=== PATIENT | female | born 1940 | race Caucasian/White ===

== ENCOUNTER 2025-06-19 09:34 | Outpatient (REF) | payer MEDICARE, BC, SELFPAY | END 2025-06-19 09:35 | disposition home or self-care (01) | LOC: HO.HPHYSR 09:34 | PROVIDERS: Visit Provider Physical Medicine & Rehabilitation | DX: M46.1 Sacroiliitis, not elsewhere classified (principal); M53.3 Sacrococcygeal disorders, not elsewhere classified | CPT/HCPCS: 27096; J2003; J3301; Q9967 ==

== ENCOUNTER 2025-06-19 09:34 | Outpatient (AMB) | payer MEDICARE, BC, SELFPAY ==
[2025-06-19 10:00] VITALS: BP 175/92; PULSE 72; TEMP 36.4; BMI 33.5
--- NOTE | 2025-06-19 10:00 | A.PHYSOV ---
Vital Signs 06/19/25 10:00 Height 4 ft 8.5 in Weight 152 lb BMI 33.5 BP 175/92 H Pulse 72 Temp 97.5 F Intake Visit Reasons: Right Sacroiliac Joint Injection Intake Note: Patient is a 84 year old female in office today for a right sacroiliac joint injection. Allergies tesslon pearls Allergy (Unknown, Uncoded 06/19/25 09:56) Unknown PFSH Medical History (Updated 06/19/25 @ 10:16 by Noel Diamond DO) Sacroiliac inflammation Sacroiliac dysfunction Surgical History (Updated 06/19/25 @ 10:00 by Leandra Louis MA) H/O hand surgery H/O shoulder surgery History of hip replacement History of knee replacement H/O: hysterectomy Social History (Updated 06/19/25 @ 09:58 by Leandra Louis MA) Household Members: None Alcohol intake: current Patient Tobacco Use Status: Former Tobacco user Use of substances other than those prescribed or required for medical reasons: No Current occupational status: retired Physical Exam Vital Signs: Last Vital Signs Temp 97.5 F 06/19/25 10:00 Pulse 72 06/19/25 10:00 BP 175/92 H 06/19/25 10:00 BMI result Body Mass Index 33.5 Office Procedures AMB Sacroiliac Joint Injection AMB Sacroiliac Joint Injection Procedure Details: Procedure performed: Right sacroiliac joint injection Preop diagnosis: SI joint mediated pain, sacroiliitis Postop diagnosis: The same Anesthesia: Local After informed consent was obtained patient was brought into the procedure room and placed in prone position on the procedure table. Skin over lumbar sacral area was prepped and draped in the usual sterile manner. The inferior portion of the right sacroiliac joint was visualized utilizing fluoroscopy. 3.5 in 22 gauge spinal needle was introduced percutaneously and advanced into the joint. Needle placement was verified utilizing 0.5 cc of Omnipaque contrast solution. 2.5 cc of therapeutic solution containing 40 mg of triamcinolone and 2% lidocaine was injected after negative aspiration for blood. The C-arm was obliqued about 30? in the contralateral direction an area just medial the proximal portion of the sacroiliac joint was visualized. 3.5 in 22 gauge spinal needle was introduced percutaneously and advanced to enter the area. Once in place, needle placement was identified utilizing 1 cc of Omnipaque contrast solution. Total volume of 2.5 cc containing 40 mg of triamcinolone and 2% lidocaine was injected to block the lateral branches at the sacroiliac ligament. Radiation exposure was documented in the chart. Sacroiliac Joint Injections 36171 - use with FL Gd order: Right All charges added?: Procedure code (CPT) selection complete Office Meds Kenalog 40 mg/mL suspension for injection Performing Provider: Noel Diamond DO Performing Location: [facility] Administered by: Noel Diamond DO on 06/19/25 10:17 Dose Route Admin Location Dispensed Lot Number Expiration Date [facility] Balance Wheel Hand Filer 80 mg intra-articular 2 mL [id number] [employer] Total Dispensed Waste 2 mL 0 % lidocaine (PF) 20 mg/mL (2 %) injection solution Performing Provider: Noel Diamond DO Performing Location: [facility] Administered by: Noel Diamond DO on 06/19/25 10:17 Dose Route Admin Location Dispensed Lot Number Expiration Date [facility] Balance Wheel Hand Filer 120 mg intra-articular 10 mL [id number] [facility] Total Dispensed Waste 10 mL 40 % Omnipaque 300 300 mg iodine/mL intravenous solution Performing Provider: Noel Diamond DO Performing [facility] Administered by: Noel Diamond DO on 06/19/25 10:17 Dose Route Admin Location Dispensed Lot Number Expiration Date [facility] Balance Wheel Hand Filer 3 mL intra-articular 10 mL [id number] [employer] Total Dispensed Waste 10 mL 70 % Assessment & Plan Assessment & Plan (1) Sacroiliac dysfunction: Code(s): M53.3 - Sacrococcygeal disorders, not elsewhere classified Category: Medical Plan: Procedure (2) Sacroiliac inflammation: Code(s): M46.1 - Sacroiliitis, not elsewhere classified Category: Medical Plan: Procedure Orders: Orders AMB Sacroiliac Joint Injection Today M46.1 - Sacroiliitis, not elsewhere classified, M53.3 - Sacrococcygeal disorders, not elsewhere classified [place] Guided Sacroiliac Jt Inj RT Today M46.1 - Sacroiliitis, not elsewhere classified, M53.3 - Sacrococcygeal disorders, not elsewhere classified Coding Level of Care Code Procedure Only Diagnoses Sacroiliac dysfunction M53.3 Sacroiliac inflammation M46.1 CPT Codes AMB Sacroiliac Joint Injection - Hip intraarticular Injection - [id number]: Right ([id number])
== END 2025-06-19 10:53 | disposition home or self-care (01) ==
LOC: HO.HPHYS 09:34
PROVIDERS: Visit Provider Physical Medicine & Rehabilitation
DX: M53.3 Sacrococcygeal disorders, not elsewhere classified (principal); M46.1 Sacroiliitis, not elsewhere classified
CPT/HCPCS: 27096